=== PATIENT | female | born 1950 | race Caucasian/White ===

== ENCOUNTER 2017-12-19 10:28 | Emergency (ER) | payer MEDICARE, MEDICAID ==
[~2017-12-19] VITALS: Ht 170.2 cm; Wt 105.0 kg
[~2017-12-19 10:28] MED LIST: ACEB200C PO; DILT31TA PO; HYDR10TA16 PO; LEVO.05 PO; PRED20 PO; TRAZ100 PO; ZITH250T PO
[2017-12-19 10:32] VITALS: BP 154/73; PULSE 86; RESP 16; TEMP 98.8; O2SAT 98
--- NOTE | 2017-12-19 11:01 | PD ---
HPI Chief Complaint: Neuro Symptoms/ Deficits Time Seen by Provider: 10:39 Travel History International Travel<30 days: No Contact w/Intl Traveler<30days: No Traveled to known affect area: No History of Present Illness HPI 67yo F with PMH of chronic back pain on pain pump and follows with pain management physician Dr Castorena was sent to the ED by Dr. Castorena for MRI as per patient. Pt said she has been having these episodes where she would have intense pain followed sometimes by passing out and then relive of pain. Said she had cramping in her entire body when she has these episodes. Pt has been falling and last week fell on left arm and left back and has no ecchymoses that does not hurt. Denies any head trauma, visual changes, focal weakness or numbness, chest pain, sob, n/v, abdominal pain. Pt said 4 years ago, she had similar symptoms and it was something to do with the pain pump. Pt had dye injected in the pain pump today and everything looked ok. PFSH Past Medical History Hx Anticoagulant Therapy: Yes Arthritis: Yes Asthma: Yes Autoimmune Disease: No Blood Disorders: No Anxiety: Yes Depression: Yes Heart Rhythm Problems: Yes (PVC) Cancer: No Cardiovascular Problems: Yes High Cholesterol: No Chemotherapy: No Chest Pain: Yes Congestive Heart Failure: No COPD: No Cerebrovascular Accident: No Diabetes: No Diminished Hearing: No Endocrine: Yes Gastrointestinal Disorders: Yes GERD: Yes Glaucoma: No Genitourinary: Yes Headaches: Yes Hepatitis: No Hiatal Hernia: No Hypertension: Yes Immune Disorder: No Implanted Vascular Access Dvce: Yes Kidney Stones: Yes Musculoskeletal: Yes Neurologic: Yes (FIBRO MYALGIA) Psychiatric: Yes Reproductive: Yes (PAST ENDOMETRIOSIS,TVH) Respiratory: Yes Migraines: Yes Myocardial Infarction: No Radiation Therapy: No Renal Failure: No Seizures: No Sickle Cell Disease: No Sleep Apnea: No Thyroid Disease: Yes (HYPOTHYROID) Ulcer: No ?: Not Menopausal: Yes Past Surgical History Abdominal Surgery: Yes (TVH,BLADDER SUP,LAB VERONICA) AICD: No Appendectomy: No Arteriovenous Shunt: No Body Medical Devices: RODS PINS AND PLATES TO BACK Cardiac Surgery: Yes (ABLATION,CARDIAC CATH) Cholecystectomy: Yes Ear Surgery: No Endocrine Surgery: No Eye Surgery: No Genitourinary Surgery: Yes (BLADDER SUP) Gynecologic Surgery: No Hysterectomy: Yes Insulin Pump: No Joint Replacement: No Neurologic Surgery: Yes (BACK X7) Oral Surgery: No Pacemaker: No Thoracic Surgery: No Other Surgery: Yes Social History Alcohol Use: No Tobacco Use: No Substance Use: No Allergies-Medications (Allergen,Severity, Reaction): Coded Allergies: amoxicillin (Unverified Allergy, Severe, Rash, 12/19/17) celecoxib (Unverified Allergy, Severe, INCREASES PAIN, 12/19/17) clavulanic acid (Unverified Allergy, Severe, Rash, 12/19/17) diclofenac (Unverified Allergy, Severe, stop breathing, 12/19/17) etodolac (Unverified Allergy, Severe, stop breathing, 12/19/17) flurbiprofen (Unverified Allergy, Severe, stop breathing, 12/19/17) ibuprofen (Unverified Allergy, Severe, stop breathing, 12/19/17) indomethacin (Unverified Allergy, Severe, stop breathing, 12/19/17) ketoprofen (Unverified Allergy, Severe, stop breathing, 12/19/17) ketorolac (Unverified Allergy, Severe, stop breathing, 04/15/17) naproxen (Unverified Allergy, Severe, stop breathing, 12/19/17) oxaprozin (Unverified Allergy, Severe, stop breathing, 12/19/17) penicillin G (Unverified Allergy, Severe, Rash, 12/19/17) Reported Meds & Prescriptions Reported Meds & Active Scripts Active Zithromax Z-Yamil (Azithromycin) 250 Mg Tab 250 Mg PO DIRECTED 5 Days 500 MG (2 TABLETS) PO ON DAY 1, THEN 250 MG (1 TABLET) PO ON DAYS 2 TO 5. Deltasone (Prednisone) 20 Mg Tab 20 Mg PO BID Reported Trazodone Hcl (Trazodone HCl) 100 Mg Tab 0 PO Acebutolol Hcl (Acebutolol HCl) 200 Mg Cap 0 PO Lortab 10/500 (Acetaminophen/Hydrocodone Bitart) 10 Mg/500 Mg Tab 1 Tab PO Q8HPRN FOR PAIN Synthroid (Levothyroxine Sodium) 50 Mcg Tab 50 Mcg PO DAILY Cardizem (Diltiazem HCl) 30 Mg Tab 30 Mg PO DAILY Review of Systems Except as stated in HPI: all other systems reviewed are Neg Physical Exam Narrative GENERAL: 67yo F not in distress. SKIN: Focused skin assessment warm/dry. HEAD: Atraumatic. Normocephalic. EYES: Pupils equal and round. No scleral icterus. No injection or drainage. ENT: No nasal bleeding or discharge. Mucous membranes pink and moist. NECK: Trachea midline. No JVD. CARDIOVASCULAR: Regular rate and rhythm. No murmur appreciated. RESPIRATORY: No accessory muscle use. Clear to auscultation. Breath sounds equal bilaterally. GASTROINTESTINAL: Abdomen soft, non-tender, nondistended. BACK: No midline thoracic or lumbar ttp. +Ecchymoses left flank. +Old surgical scar in lumbar spine. MUSCULOSKELETAL: LUE: +Ecchymoses in left humerus. Not ttp. Distal pulses intact. FROM left shoulder and elbow. +Bilateral lower extremity edema that has improved from prior. Discoloration in bilateral lower extremity. NEUROLOGICAL: Awake and alert. No obvious cranial nerve deficits. Motor grossly within normal limits. Normal speech. PSYCHIATRIC: Appropriate mood and affect; insight and judgment normal. Data Data Last Documented VS Vital Signs Date Time Temp Pulse Resp B/P (MAP) Pulse Ox O2 Delivery O2 Flow Rate FiO2 12/19/17 11:25 64 117/61 (79) 67 124/60 (81) 85 118/55 (76) 12/19/17 10:32 98.8 16 98 Orders Orders Electrocardiogram (12/19/17 11:01) Basic Metabolic Panel (Bmp) (12/19/17 11:01) Comprehensive Metabolic Panel (12/19/17 11:01) Troponin I (12/19/17 11:01) Orthostatic Vital Signs (12/19/17 11:01) Diazepam (Valium) (12/19/17 13:15) Labs Laboratory Tests Test 12/19/17 11:13 Blood Urea Nitrogen 22 MG/DL Creatinine 0.84 MG/DL Random Glucose 107 MG/DL Total Protein 7.5 GM/DL Albumin 3.8 GM/DL Calcium Level 9.0 MG/DL Alkaline Phosphatase 83 U/L Aspartate Amino Transf (AST/SGOT) 29 U/L Alanine Aminotransferase (ALT/SGPT) 22 U/L Total Bilirubin 0.6 MG/DL Sodium Level 137 MEQ/L Potassium Level 4.0 MEQ/L Chloride Level 102 MEQ/L Carbon Dioxide Level 30.6 MEQ/L Anion Gap 4 MEQ/L Estimat Glomerular Filtration Rate 68 ML/MIN Troponin I LESS THAN 0.02 NG/ML MDM Medical Decision Making Medical Screen Exam Complete: Yes Emergency Medical Condition: Yes Interpretation(s) EKG: NSR 73bpm. Normal axis. PVC. No ST segment elevation or depression. Differential Diagnosis Chronic pain vs. musculoskeletal pain Narrative Course 67yo F was sent here by pain management doctor for intractable pain. CMP unremarkable. Troponin negative. I called Dr. Castorena and he said he sent her here for intractable pain and that she can have MRI of her back as outpatient. Pt has these episodes of severe overall body pain when she sits up but currently has no pain. Pt has no midline ttp thoracic or lumbar spine and no focal neurologic deficits. Pt given valium which helped. Pt wants to go home. Return precautions given. Diagnosis Primary Impression: Generalized pain Patient Instructions: General Instructions Departure Forms: Tests/Procedures Additional Instructions: Please follow up with your pain management physician as outpatient. Return to the ED if symptoms worsen. Med/Other Pt SpecificInfo: No Change to Meds Disposition: 01 DISCHARGE HOME Condition: Stable Amanda Cabrera DO Dec 19, 2017 11:01
[2017-12-19 11:25] VITALS: BP_SYST 117; BP_SYST 118; BP_SYST 124; BP_DIAS 55; BP_DIAS 60; BP_DIAS 61
[2017-12-19 12:02] LABS: ALT (GPT) 22 U/L (10-53)
[2017-12-19 12:06] LABS: ALKALINE PHOSPHATASE 83 U/L (45-117); TOTAL BILIRUBIN ADULT 0.6 MG/DL (0.2-1.0); TOTAL PROTEIN 7.5 GM/DL (6.4-8.2); TROPONIN I LESS THAN 0.02 NG/ML (0.02-0.05)
[2017-12-19 12:10] LABS: ALBUMIN 3.8 GM/DL (3.4-5.0); AST (GOT) 29 U/L (15-37); BICARBONATE 30.6 MEQ/L (21.0-32.0); BLOOD UREA NITROGEN 22 MG/DL (7-18); CHLORIDE 102 MEQ/L (98-107); CREATININE 0.84 MG/DL (0.50-1.00); GLOMERULAR FILTRATION RATE 68 ML/MIN (>89); GLUCOSE,RANDOM 107 MG/DL (74-106); SODIUM (NA) 137 MEQ/L (136-145)
[2017-12-19] MEDS ORDERED: DIAZEPAM 5 MG TAB PO ONE (13:15)
--- NOTE | 2017-12-20 18:58 | EKG ---
Date Performed: 12/19/2017 Time Performed: 11:11:29 PTAGE: 67 years EKG: Sinus rhythm WITH OCCASIONAL VENTRICULAR PREMATURE COMPLEXES ATRIAL DEMAND PACING BASELINE ARTIFACT OBSCURING ST- T CHANGES IN LEAD I, II, AND II, BUT OTHERWISE NO CHANGE FROM PRIOR BORDERLINE ECG PREVIOUS TRACING : 11/13/2010 17.37 DOCTOR: Ken Zuleta Interpretating Date/Time 12/20/2017 18:56:58
== END 2017-12-19 14:11 | disposition home or self-care (01) ==
LOC: NEPE 10:28
DX: G89.29 Other chronic pain (principal); M54.9 Dorsalgia, unspecified; E03.9 Hypothyroidism, unspecified; I10 Essential (primary) hypertension; R25.2 Cramp and spasm
CPT/HCPCS: 80053; 84484; 93005